=== PATIENT | female | born 1985 | race Caucasian/White ===

== ENCOUNTER 2022-10-29 11:49 | Emergency (ER) | payer OTHER ==
[2022-10-29] MEDS ORDERED: Acetaminophen 500 MG TAB ONE (12:08)
== END 2022-10-29 13:17 | disposition home or self-care (01) ==
LOC: ERS 11:49
DX: M79.631 Pain in right forearm (principal); M25.531 Pain in right wrist; E11.9 Type 2 diabetes mellitus without complications; J44.9 Chronic obstructive pulmonary disease, unspecified

== ENCOUNTER 2022-11-11 19:28 | Emergency (ER) | payer OTHER ==
[2022-11-11] MEDS ORDERED: Ondansetron PF 4 MG/2 ML Vial ONE (19:41)
[2022-11-11] MEDS ORDERED: Ondansetron ODT 4 MG TAB ONE (19:41)
[2022-11-11] MEDS ORDERED: Dicyclomine 20 MG TAB ONE (20:41)
[2022-11-11 20:42] LABS: SARS-CoV-2 NAA Rapid Test Not Detected (NotDetected)
== END 2022-11-11 21:23 | disposition home or self-care (01) ==
LOC: ERS 19:28
DX: B34.9 Viral infection, unspecified (principal); E11.9 Type 2 diabetes mellitus without complications; J44.9 Chronic obstructive pulmonary disease, unspecified; Z79.84 Long term (current) use of oral hypoglycemic drugs; Z20.822 Contact with and (suspected) exposure to COVID-19
CPT/HCPCS: 36416; 87081; 87430; 99283; J2405; Q0162